=== PATIENT | female | born 1990 | race African-American/Black ===

== ENCOUNTER 2016-05-30 16:23 | Emergency (ER) | payer MEDICAID ==
--- NOTE | 2016-05-30 17:04 | ER Document Report ---
ED Medical Screen (RME) - General Stated Complaint: VAGINAL BLEEDING Time seen by provider: 17:02 Mode of Arrival: Ambulatory Information source: Patient TRAVEL OUTSIDE OF THE [place] IN LAST 30 DAYS: No - HPI Patient complains to provider of: VAGINAL BLEEDING Onset: Yesterday Onset/Duration: Sudden Quality of pain: Cramping Severity: Mild Pain Level: 2 Associated Symptoms: Abdominal pain - CRAMPING, Vaginal bleeding - DENIES PASSING CLOTS, ALSO C/O VAGINAL ITCHING Exacerbated by: Denies Relieved by: Denies Similar symptoms previously: Yes - HAD SPOTTING LAST WELL Recently seen / treated by doctor: No Notes: 05/30/16 17:03 THINKS SHE IS ABOUT 5-7 WEEKS - Related Data Smoking: Quit less than 1 year Frequency of alcohol use: None Drug Abuse: None Allergies/Adverse Reactions: No Known Allergies Allergy (Verified 05/30/16 16:59) Physical Exam - Vital signs Vitals: Temp Pulse Resp BP Pulse Ox 98.9 F 110 H 16 141/79 H 99 05/30/16 16:27 05/30/16 16:27 05/30/16 16:27 05/30/16 16:27 05/30/16 16:27 Course - Vital Signs Vital signs: Temp Pulse Resp BP Pulse Ox 98.9 F 110 H 16 141/79 H 99 05/30/16 16:27 05/30/16 16:27 05/30/16 16:27 05/30/16 16:27 05/30/16 16:27
[2016-05-30 17:22] LABS: ABSOLUTE EOSINOPHILS # (AUTO) 0.2 10^3/uL (0.0-0.6); ABSOLUTE LYMPHOCYTES (AUTO) 2.8 10^3/uL (0.5-4.7); ABSOLUTE MONOCYTES (AUTO) 0.7 10^3/uL (0.1-1.4); ABSOLUTE NEUT (AUTO) 7.7 10^3/uL (1.7-8.2); BASOPHILS % (AUTO) 0.3 % (0-2); EOSINOPHILS % (AUTO) 1.8 % (0-6); HEMATOCRIT 37.6 % (36.0-47.0); HEMOGLOBIN 11.8 g/dL (12.0-15.5); HGB HCT DIFFERENCE -2.2; LYMPHOCYTES % (AUTO) 24.6 % (13-45); MEAN CORPUSCULAR HGB CONC 31.5 g/dL (32.0-36.0); MEAN CORPUSCULAR VOLUME 70 fl (80-97); MONOCYTES % (AUTO) 6.3 % (3-13); RED BLOOD COUNT 5.37 10^6/uL (3.72-5.28); RED CELL DISTRIBUTION WIDTH 18.4 % (11.5-14.0); WHITE BLOOD COUNT 11.6 10^3/uL (4.0-10.5)
[2016-05-30 17:40] LABS: ALANINE AMINOTRANSFERASE 30 U/L (9-52); ALBUMIN 3.6 g/dL (3.5-5.0); ALKALINE PHOSPHATASE 72 U/L (38-126); ANION GAP 11 (5-19); ASPARTATE AMINO TRANSFERASE 24 U/L (14-36); BILIRUBIN,TOTAL 0.3 mg/dL (0.2-1.3); BLOOD UREA NITROGEN 11 mg/dL (7-20); CALCIUM 9.4 mg/dL (8.4-10.2); CARBON DIOXIDE 25 mmol/L (22-30); CHLORIDE 105 mmol/L (98-107); CREATININE RESULT 0.65 mg/dL (0.52-1.25); GLUCOSE 92 mg/dL (75-110); POTASSIUM 4.1 mmol/L (3.6-5.0); SODIUM 140.8 mmol/L (137-145); TOTAL PROTEIN 7.3 g/dL (6.3-8.2)
--- NOTE | 2016-05-30 18:59 | ER Document Report ---
ED GI/ - General Chief Complaint: Vag Bleeding, +preg <12wks Stated Complaint: VAGINAL BLEEDING Mode of Arrival: Ambulatory Information source: Patient Notes: 25 y/o female (twins) with uncertain LMP (thinks mid march?) presents with lower pelvic pain and vaginal bleeding since last night. Uncertain blood type. No US yet this . Bleeding is sitecore developer than a period, no clots or tissue. No fevers, chills, systemic symptoms. No dysuria. Pt planning to go [facility] and at this point does not have a PCP or OB provider. TRAVEL OUTSIDE OF THE [place] IN LAST 30 DAYS: No - HPI OB ultrasound done: No vitamins taken: No Associated symptoms: denies: Dizzy, Fever, Shortness of breath, Syncope, Urinary frequency, Urinary urgency, Vomiting - Related Data Allergies/Adverse Reactions: No Known Allergies Allergy (Verified 05/30/16 16:59) Past Medical History - General Information source: Patient Last Menstrual Period: 04/18/2017 - Social History Smoking Status: Current Every Day Smoker Chew tobacco use (# tins/day): No Smoking Education Provided: Yes - pt states she quit last week when she found out she was Frequency of alcohol use: None Drug Abuse: None Family History: Reviewed & Not Pertinent Patient has suicidal ideation: No Patient has homicidal ideation: No - Medical History Medical History: Negative Renal/ Medical History: Denies: Hx Peritoneal Dialysis Past Surgical History: Reports: Hx Section, Hx Tonsillectomy Review of Systems - Review of Systems Notes: REVIEW OF SYSTEMS: CONSTITUTIONAL : Denies fever, chills, or sweats. Denies recent illness. EENT: Denies eye, ear, throat, or mouth pain or symptoms. Denies nasal or sinus congestion. CARDIOVASCULAR: Denies chest pain. RESPIRATORY: Denies cough, cold, or chest congestion. Denies shortness of breath, difficulty breathing, or wheezing. GASTROINTESTINAL: Denies abdominal pain. Denies nausea, vomiting, or diarrhea. Denies constipation. Last BM: GENITOURINARY: Denies difficulty urinating, painful urination, burning, frequency, or blood in urine. FEMALE GENITOURINARY: as per HPI MUSCULOSKELETAL: Denies neck or back pain or joint pain or swelling. SKIN: Denies rash or skin lesions. HEMATOLOGIC : Denies easy bruising or bleeding. LYMPHATIC: Denies swollen, enlarged glands. NEUROLOGICAL: Denies altered mental status or loss of consciousness. Denies headache. Denies weakness or paralysis or loss of use of either side. PSYCHIATRIC: Denies anxiety or stress or depression. ALL OTHER SYSTEMS REVIEWED AND NEGATIVE. Physical Exam - Vital signs Vitals: Temp Pulse Resp BP Pulse Ox 98.9 F 110 H 16 141/79 H 99 05/30/16 16:27 05/30/16 16:27 05/30/16 16:27 05/30/16 16:27 05/30/16 16:27 - Notes Notes: PHYSICAL EXAMINATION: GENERAL: Well-appearing, well-nourished and in no acute distress. HEAD: Atraumatic, normocephalic. EYES: Pupils equal round and reactive to light, extraocular movements intact, sclera anicteric, conjunctiva are normal. ENT: nares patent, oropharynx clear without exudates. Moist mucous membranes. NECK: Normal range of motion, supple without lymphadenopathy LUNGS: Breath sounds clear to auscultation bilaterally and equal. No wheezes rales or rhonchi. HEART: Regular rate and rhythm without murmurs ABDOMEN: Soft, nontender, normoactive bowel sounds, obese. No guarding, no rebound. No masses appreciated. EXTREMITIES: Normal range of motion, no pitting or edema NEUROLOGICAL: Cranial nerves grossly intact. No gross motor or sensory deficits PSYCH: Normal mood, normal affect. SKIN: Warm, Dry, normal turgor, no rashes or lesions noted. - Genitourinary External exam: Other - right sided bartholin's gland cyst noted Speculum exam: Normal, Cervix closed. No: Vaginal discharge Vaginal bleeding: None Bimanuel exam: Other - deferred secondary to bartholins cyst Course - Re-evaluation Re-evalutation: 05/30/16 20:37 Pt doing well, no further bleeding in ER. Discussed US results and diagnosis of threatened miscarriage. Pt is not a rhogam candidate. Pt to follow up with health department. Strict return precautions discussed and questions answered. - Vital Signs Vital signs: Temp Pulse Resp BP Pulse Ox 98.9 F 110 H 16 141/79 H 99 05/30/16 16:27 05/30/16 16:27 05/30/16 16:27 05/30/16 16:27 05/30/16 16:27 - Laboratory Result Diagrams: 05/30/16 17:13 05/30/16 17:13 Laboratory results interpreted by me: 05/30/16 05/30/16 05/30/16 17:13 17:13 19:24 WBC 11.6 H RBC 5.37 H Hgb 11.8 L MCV 70 L MCH 22.0 L MCHC 31.5 L RDW 18.4 H Beta HCG, Quant 3096.70 H Urine Protein 30 H Ur Leukocyte Esterase MODERATE H 05/30/16 19:01 05/30/16 20:37 - Diagnostic Test Radiology reviewed: Reports reviewed - IUP with GS and YS, no pole. Area of subchorionic hemorrhage. Discharge - Discharge Clinical Impression: Threatened in early , Subchorionic hemorrhage in first trimester Condition: Good Disposition: HOME, SELF-CARE Additional Instructions: THREATENED MISCARRIAGE: You have been evaluated for a possible miscarriage. At this time, there is no indication that a miscarriage will occur. Most women with your symptoms will go on to have a perfectly normal baby. However, careful observation will be necessary. A miscarriage occurs when the fetus is abnormal. There is no medicine or treatment for it. You should rest in bed until the symptoms have resolved. Do not douche or have sex for at least a week, or until OK'd by the doctor. Call the doctor or return for re-examination if there is an increase in bleeding or cramping, or passage of tissue. FOLLOW-UP CARE: If you have been referred to a physician for follow-up care, call the physician s office for an appointment as you were instructed or within the next two days. If you experience worsening or a significant change in your symptoms (very heavy bleeding with large clots of blood, passage of tissue, more severe abdominal / pelvic pain or cramping, feeling faint or severe weakness, fever, etc.), notify the physician immediately or return to the Emergency Department at any time for re-evaluation. OBSTETRIC-GYNECOLOGIC (OB-HEARING AID MECHANIC) PHYSICIANS IN [place]: [facility] [address] [place] [address] [phone] Forms: Smoking Cessation Education Referrals: BRADLEY TIJERINA MD [Primary Care Provider] - Follow up as needed [facility] [Provider Group] - Follow up in 1 week
[2016-05-30 19:41] LABS: APPEARANCE,URINE CLOUDY; BILIRUBIN,URINE NEGATIVE (NEGATIVE); GLUCOSE, URINE NEGATIVE (NEGATIVE); KETONES,URINE NEGATIVE (NEGATIVE); LEUKOCYTE ESTERASE,URINE MODERATE (NEGATIVE); NITRITE,URINE NEGATIVE (NEGATIVE); PROTEIN,URINE 30 mg/dL (NEGATIVE); URINE SPECIFIC GRAVITY 1.029; UROBILINOGEN,URINE NEGATIVE mg/dL (<2.0)
[2016-05-30 21:03] LABS: CHLAM PCR NOT DETECTED (NOT DETECT)
[2016-05-30 21:08] VITALS: BP 123/61
== END 2016-05-30 20:58 | disposition home or self-care (01) ==
LOC: ER 16:23
DX: O20.0 Threatened abortion (principal); O26.891 Other specified pregnancy related conditions, first trimester; N75.0 Cyst of Bartholin's gland; R10.2 Pelvic and perineal pain; Z3A.00 Weeks of gestation of pregnancy not specified; Z87.891 Personal history of nicotine dependence
CPT/HCPCS: 36415; 76817; 80053; 81001; 84702; 85025; 86900; 86901; 87210; 87491; 87591; 99284

== ENCOUNTER 2016-12-21 20:07 | Outpatient (CLI) | payer MEDICAID ==
[2016-12-21 21:07] LABS: APPEARANCE,URINE CLOUDY; BILIRUBIN,URINE NEGATIVE (NEGATIVE); GLUCOSE, URINE NEGATIVE (NEGATIVE); KETONES,URINE NEGATIVE (NEGATIVE); LEUKOCYTE ESTERASE,URINE MODERATE (NEGATIVE); NITRITE,URINE NEGATIVE (NEGATIVE); PROTEIN,URINE NEGATIVE (NEGATIVE); URINE SPECIFIC GRAVITY 1.025; UROBILINOGEN,URINE NEGATIVE mg/dL (<2.0)
[2016-12-21 21:21] LABS: URINE BARBITURATES SCREEN NEGATIVE; URINE METHADONE SCREEN NEGATIVE; URINE OPIATES LOW NEGATIVE; URINE PHENCYCLIDINE SCREEN NEGATIVE
--- NOTE | 2016-12-21 21:33 | Non Stress Test Report ---
Non Stress Test Datetime Report Generated by CPN: 12/21/2016 21:33 DEMOGRAPHIC Test Number: 1 EGA NST: 34.5 INDICATION Indication for Study: Ordered by Provider MONITORING Monitor Explained: Monitor Explained; Test Explained; Patient Verbalized Understanding Time on Monitor: 12/21/2016 20:27 Time off Monitor: 12/21/2016 21:17 NST Duration: 50 NST INTERVENTIONS NST Interventions: PO Hydration Physician Notified NST: Dr Miner BABY A: [id number] BABY A Movement : Present Contraction Frequency : rare FHR Baseline : 140 Accelerations : 15X15 Decelerations : None Variability : Moderate 6-25bpm NST Review: Meets Criteria for Reactive NST NST Review and Verified By : Fatuma Cox RN NST Results: Reactive NST REPORT Report Trigger: Send Report
== END 2016-12-21 21:29 | disposition home or self-care (01) ==
LOC: LC 20:07
PROVIDERS: ATTEND Student in an Organized Health Care Education/Training Program
PROC: 4A1HXCZ Monitoring of Products of Conception, Cardiac Rate, External Approach (ICD-10-PCS; principal; 2016-12-21)
DX: O47.03 False labor before 37 completed weeks of gestation, third trimester (principal); Z3A.34 34 weeks gestation of pregnancy
CPT/HCPCS: 59025; 80307; 81001

== ENCOUNTER 2016-12-22 21:52 | Outpatient (CLI) | payer MEDICAID ==
[2016-12-22 22:24] LABS: APPEARANCE,URINE CLOUDY; BILIRUBIN,URINE NEGATIVE (NEGATIVE); GLUCOSE, URINE 50 mg/dL (NEGATIVE); KETONES,URINE NEGATIVE (NEGATIVE); LEUKOCYTE ESTERASE,URINE MODERATE (NEGATIVE); NITRITE,URINE NEGATIVE (NEGATIVE); PROTEIN,URINE 30 mg/dL (NEGATIVE); URINE SPECIFIC GRAVITY 1.028; UROBILINOGEN,URINE NEGATIVE mg/dL (<2.0)
[2016-12-22 22:41] LABS: URINE BARBITURATES SCREEN NEGATIVE; URINE METHADONE SCREEN NEGATIVE; URINE OPIATES LOW NEGATIVE; URINE PHENCYCLIDINE SCREEN NEGATIVE
[2016-12-23] MEDS ORDERED: HYDROXYZINE PAMOATE 50 MG CAPSULE PO ONE (00:10)
[2016-12-23] MEDS ORDERED: RINGERS SOLUTION,LACTATED 2,000 ML IV ONE (00:10)
[2016-12-23] MEDS ORDERED: HYDROXYZINE PAMOATE 50 MG CAPSULE ONE (00:13)
--- NOTE | 2016-12-23 00:37 | Non Stress Test Report ---
Non Stress Test Datetime Report Generated by CPN: 12/23/2016 00:37 DEMOGRAPHIC EGA NST: 35.0 INDICATION Indication for Study: Ordered by Provider; Other Indication for Study (NST) Other: labor check MONITORING Monitor Explained: Monitor Explained; Test Explained; Patient Verbalized Understanding Time on Monitor: 12/23/2016 22:05 Time off Monitor: 12/23/2016 00:16 NST Duration: -1309 NST INTERVENTIONS NST Interventions: PO Hydration; IV Fluids Physician Notified NST: Mao BABY A: [id number] BABY A Movement : Present Contraction Frequency : occasional FHR Baseline : 135 Accelerations : 15X15 Decelerations : None Variability : Moderate 6-25bpm NST Review: Meets Criteria for Reactive NST NST Review and Verified By : Fatuma Cox RN NST Results: Reactive NST REPORT Report Trigger: Send Report
== END 2016-12-23 00:24 | disposition home or self-care (01) ==
LOC: LC 21:52
PROVIDERS: ATTEND Obstetrics & Gynecology
PROC: 4A1HXCZ Monitoring of Products of Conception, Cardiac Rate, External Approach (ICD-10-PCS; principal; 2016-12-22)
DX: O47.03 False labor before 37 completed weeks of gestation, third trimester (principal); Z3A.35 35 weeks gestation of pregnancy
CPT/HCPCS: 59025; 81001; 80307; J3490

== ENCOUNTER 2017-01-18 17:26 | Outpatient (CLI) | payer MEDICAID ==
--- NOTE | 2017-01-18 18:11 | Non Stress Test Report ---
Non Stress Test Datetime Report Generated by CPN: 01/18/2017 18:11 DEMOGRAPHIC EGA NST: 38.5 INDICATION Indication for Study: Ordered by Provider VITAL SIGNS Temperature - NST: 99.0 MONITORING Monitor Explained: Monitor Explained; Test Explained; Patient Verbalized Understanding Time on Monitor: 01/18/2017 17:40 Time off Monitor: 01/18/2017 18:05 NST Duration: 25 NST INTERVENTIONS NST Interventions: PO Hydration Physician Notified NST: Dr. Garcia BABY A: [id number] BABY A Movement : Present Contraction Frequency : None FHR Baseline : 130 Accelerations : 15X15 Decelerations : None Variability : Moderate 6-25bpm NST Review: Meets Criteria for Reactive NST NST Review and Verified By : Fatuma Cavanaugh RN NST Results: Reactive NST COMMENTS NST Comments: Dr. Garcia reviewed strip, ordered to send pt home. Reviewed kickcounts and reasons to return to the hospital with pt, pt and support person verbalized understanding. NST REPORT Report Trigger: Send Report
== END 2017-01-18 18:05 | disposition home or self-care (01) ==
LOC: LC 17:26
PROVIDERS: ATTEND Obstetrics & Gynecology
PROC: 4A1HXCZ Monitoring of Products of Conception, Cardiac Rate, External Approach (ICD-10-PCS; principal; 2017-01-18)
DX: Z34.83 Encounter for supervision of other normal pregnancy, third trimester (principal); Z36 Encounter for antenatal screening of mother; Z3A.38 38 weeks gestation of pregnancy
CPT/HCPCS: 59025

== ENCOUNTER 2017-01-23 07:45 | Inpatient (IN) | payer MEDICAID ==
[2017-01-22 12:41] LABS: ABSOLUTE EOSINOPHILS # (AUTO) 0.2 10^3/uL (0.0-0.6); ABSOLUTE LYMPHOCYTES (AUTO) 1.7 10^3/uL (0.5-4.7); ABSOLUTE MONOCYTES (AUTO) 0.8 10^3/uL (0.1-1.4); ABSOLUTE NEUT (AUTO) 5.6 10^3/uL (1.7-8.2); BASOPHILS % (AUTO) 0.3 % (0-2); EOSINOPHILS % (AUTO) 2.3 % (0-6); HEMATOCRIT 30.6 % (36.0-47.0); HEMOGLOBIN 10.1 g/dL (12.0-15.5); HGB HCT DIFFERENCE -0.3; LYMPHOCYTES % (AUTO) 20.7 % (13-45); MEAN CORPUSCULAR HEMOGLOBIN 23.8 pg (27.0-33.4); MEAN CORPUSCULAR HGB CONC 32.8 g/dL (32.0-36.0); MEAN CORPUSCULAR VOLUME 72 fl (80-97); MONOCYTES % (AUTO) 9.3 % (3-13); RED BLOOD COUNT 4.23 10^6/uL (3.72-5.28); RED CELL DISTRIBUTION WIDTH 18.3 % (11.5-14.0); SEGMENTED NEUTROPHILS % (AUTO) 67.4 % (42-78); WHITE BLOOD COUNT 8.3 10^3/uL (4.0-10.5)
[2017-01-22 12:46] LABS: APPEARANCE,URINE CLEAR; BILIRUBIN,URINE NEGATIVE (NEGATIVE); GLUCOSE, URINE NEGATIVE (NEGATIVE); KETONES,URINE NEGATIVE (NEGATIVE); LEUKOCYTE ESTERASE,URINE NEGATIVE (NEGATIVE); NITRITE,URINE NEGATIVE (NEGATIVE); PROTEIN,URINE 30 mg/dL (NEGATIVE); UROBILINOGEN,URINE NEGATIVE mg/dL (<2.0)
[2017-01-22 13:20] LABS: URINE BARBITURATES SCREEN NEGATIVE; URINE METHADONE SCREEN NEGATIVE; URINE OPIATES LOW NEGATIVE; URINE PHENCYCLIDINE SCREEN NEGATIVE
[2017-01-24] MEDS ORDERED: CEFAZOLIN 2 GM/D5W RTU 2 GM/50 ML RTUPB IV PRN (05:00)
[2017-01-24] MEDS ORDERED: LIDOCAINE 0.5% INJ-PF (5 MG/ML) 50 ML SDV SUBCUT PRN (05:00)
[2017-01-24] MEDS ORDERED: LACTATED RINGERS 1000 ML IV PRN (05:00)
[2017-01-24] MEDS ORDERED: RINGERS SOLUTION,LACTATED 1,500 ML IV PRN (05:00)
[2017-01-24] MEDS ORDERED: MIDAZOLAM 2 MG/2 ML INJ ONE (07:38)
[2017-01-24] MEDS ORDERED: FENTANYL CITRATE INJ/PF 100 MCG/2 ML AMPUL ONE (07:38)
[2017-01-24] MEDS ORDERED: EPHEDRINE SULFATE INJ 50 MG/1 ML AMPULE ONE (07:38)
[2017-01-24] MEDS ORDERED: OXYTOCIN/NORMAL SALINE 20 UNIT/1,000 ML RTUINJ ONE ×2 (07:39→09:37)
[2017-01-24] MEDS ORDERED: ACETAMINOPHEN 100 ML IV ONE (07:39)
[2017-01-24] MEDS ORDERED: DIPHENHYDRAMINE HCL 50 MG/ML VIAL IV PRN (07:59)
[2017-01-24] MEDS ORDERED: PROMETHAZINE HCL INJ 25 MG/1 ML VIAL IV PRN ×2 (07:59)
[2017-01-24] MEDS ORDERED: MORPHINE SULFATE 10 MG/ML INJ IV PRN (07:59)
[2017-01-24] MEDS ORDERED: FENTANYL CITRATE INJ/PF 100 MCG/2 ML AMPUL IV PRN ×3 (07:59)
[2017-01-24] MEDS ORDERED: MEPERIDINE HCL/PF INJ 25 MG/1 ML DISP.SYRIN IV PRN (07:59)
[2017-01-24] MEDS ORDERED: OXYCODONE-ACETAMINOPHEN 5-325 MG TABLET PO PRN ×3 (07:59→10:30)
[2017-01-24] MEDS ORDERED: MISOPROSTOL 0.2 MG TABLET ONE (08:35)
[2017-01-24] MEDS ORDERED: OXYTOCIN/NORMAL SALINE 20 UNIT/1,000 ML RTUINJ INJ PRN (10:20)
[2017-01-24] MEDS ORDERED: PROMETHAZINE HCL INJ 25 MG/1 ML VIAL IM PRN (10:30)
[2017-01-24] MEDS ORDERED: ACETAMINOPHEN 325 MG TABLET PO PRN (10:30)
[2017-01-24] MEDS ORDERED: RINGERS SOLUTION,LACTATED 1,000 ML IV SCH (10:30)
[2017-01-24] MEDS ORDERED: MEASLES,MUMPS&RUBELLA VACC/PF 0.5 ML VIAL SUBCUT PRN (10:30)
[2017-01-24] MEDS ORDERED: DIPH/PERTUSS(ACELL)/TETANUS VAC/PF 0.5 ML SYR (>=10YO) IM PRN (10:30)
[2017-01-24] MEDS ORDERED: SIMETHICONE 80 MG TAB.CHEW PO PRN (10:30)
--- NOTE | 2017-01-24 11:30 | OPERATIVE REPORT E ---
Operative Report NAME: ALIYAH REED : 1990 AGE: 26Y DATE OF SURGERY: 01/24/2017 ROOM: 227 PREOPERATIVE DIAGNOSES: 1. Intrauterine at 39+ weeks with history of and desire for repeat. 2. Gestational diabetes. 3. Hydradenitis suppurativa. POSTOPERATIVE DIAGNOSES: 1. Intrauterine at 39+ weeks with history of and desire for repeat. 2. Gestational diabetes. 3. Hydradenitis suppurativa. OPERATION PERFORMED: Repeat low transverse . SURGEON: EMILY MCBRIDE M.D. ANESTHESIA: Spinal. ESTIMATED BLOOD LOSS: 600 mL. SPECIMEN TO PATHOLOGY: None, placenta was discarded. FINDINGS: Abdomen has skin changes consistent with hydradenitis suppurativa. There were a couple of infected areas on her abdominal wall. She had a redundant pannus. There was a Huerta male infant in vertex presentation with clear amniotic fluid. Apgars were 7 at one, 9 at five minutes. Weight was 9 pounds 14 ounces. DESCRIPTION OF PROCEDURE: After discussing risks, benefits, and alternatives of the procedure and obtaining informed consent, the patient was taken to the operating room where spinal anesthesia was achieved. She was positioned in the dorsal supine position with a leftward tilt. A Rivera catheter was placed and the pannus was taped back. She was prepped and draped in the standard fashion. A Pfannenstiel skin incision was made and abdomen was entered in layers in the standard fashion. The hysterotomy incision was made, and the surgeon's hand was entered into it. An attempt was made at elevating the vertex; however, the rectus muscles were very stiff and did not allow for delivery of the head; therefore, the surgeon's hand was removed from the hysterotomy and the rectus muscles on the right were interrupted with cautery to allow for more space. Attempt was again made at elevating the vertex out of the abdominal cavity. Difficulty was encountered and so a Kiwi vacuum was applied to the vertex and pulled over one pull with no pop-off to delivery. Maximum pressure was 550 mmHg. The shoulders and body delivered then delivered easily thereafter. Nasopharynx and oropharynx were bulb suctioned. Cord was clamped x2 and cut. Placenta was manually extracted. Uterus was left in situ but cleared of all clots and debris. The hysterotomy incision was closed with 0 Monocryl in a running locked fashion. An area of oozing was noted on the right aspect of the incision and this was oversewn with 0-Monocryl. Excellent hemostasis was then observed. The pelvis was irrigated and hemostasis again assured. Next the peritoneum was closed with 2-0 Vicryl in a pursestring fashion. An area of bleeding was then noted in the inferior epigastric area on the patient's left. It was on the inferior aspect of the incision and this was oversewn with a [id number] of 2-0 Vicryl. Excellent hemostasis was observed. The subfascial spaces were inspected and hemostasis again assured. The rectus muscles were loosely reapproximated with interrupted 2-0 Vicryl. The fascia was closed with #1 Vicryl. Subcutaneous spaces were closed with 3-0 plain gut. Skin was closed in a subcuticular fashion with 3-0 Monocryl. A DULCE dressing was placed for negative wound pressure given the patient's hydradenitis and increased risk for wound infection. It was also felt prudent given her obesity. All sponge, needle, lap, and instrument counts were correct x2. Cytotec 1000 mcg was placed given the macrosomic fetus in a patient who is multiparous to prevent uterine atony. The patient was taken to recovery in stable condition. DICTATING PHYSICIAN: EMILY MCBIRDE M.D. [id number] PHY#: [id number] ID: [id number] JOB#: [id number] ACCT: [id number] cc:EMILY MCBRIDE M.D. >
[2017-01-24] MEDS ORDERED: ONDANSETRON HCL INJ/PF 4 MG/2 ML SDV ONE (11:49)
[2017-01-24] MEDS: HYDROMORPHONE HCL INJ/PF 2 MG/ML AMPULE IV PRN ×3 (12:00→21:14)
[2017-01-24] MEDS: IBUPROFEN 800 MG TABLET PO SCH ×2 (13:06→17:10)
[2017-01-24] MEDS: DOCUSATE SODIUM 100 MG CAPSULE PO SCH (17:10)
[2017-01-25] MEDS: IBUPROFEN 800 MG TABLET PO SCH ×4 (00:32→18:39)
[2017-01-25 06:22] LABS: HEMATOCRIT 25.9 % (36.0-47.0); HEMOGLOBIN 8.4 g/dL (12.0-15.5); HGB HCT DIFFERENCE -0.7; MEAN CORPUSCULAR HEMOGLOBIN 23.8 pg (27.0-33.4); MEAN CORPUSCULAR HGB CONC 32.4 g/dL (32.0-36.0); MEAN CORPUSCULAR VOLUME 74 fl (80-97); RED BLOOD COUNT 3.53 10^6/uL (3.72-5.28); RED CELL DISTRIBUTION WIDTH 18.7 % (11.5-14.0); WHITE BLOOD COUNT 8.5 10^3/uL (4.0-10.5)
[2017-01-25] MEDS: OXYCODONE-ACETAMINOPHEN 5-325 MG TABLET PO PRN ×3 (07:19→22:44)
[2017-01-25] MEDS: DOCUSATE SODIUM 100 MG CAPSULE PO SCH ×2 (09:52→18:39)
[2017-01-25] MEDS: PRENATAL VITAMIN W-O CA NO5/FE FUMARATE/FA CAPSULE PO SCH (09:52)
--- NOTE | 2017-01-25 14:35 | PDOC PROGRESS REPORT ---
Subjective-OB Subjective: Post Delivery Day: 1 26 year old. Denies any needs at this time, lochia is stable, pain well controlled, voiding without difficulty, passing gas. Physical Exam (OB) Vital Signs: Temp Pulse Resp BP Pulse Ox 98.2 F 86 21 H 128/68 H 98 01/25/17 07:58 01/25/17 07:58 01/25/17 07:58 01/25/17 07:58 01/25/17 07:58 Intake & Output 01/24/17 01/25/17 01/26/17 06:59 06:59 06:59 Intake Total 2975 Output Total 1900 Balance 1075 Weight 134 kg - PIH/Pre-Eclampsia Headache: Absent Epigastric Pain: No Visual Changes: No - Dressing Removed: No - dulce Incision: Dressing Closure Type: DULCE - Lochia Lochia Amount: Scant < 10 ml Lochia Color: Rubra/Red, Serosa/Brown - Abdomen Description: Soft Hernia Present: No Fundal Description: Firm, Midline Fundal Height: u/u - u/2 Objective-Diagnostic Laboratory: 01/25/17 06:10 01/25/17 06:10 WBC 8.5 RBC 3.53 L Hgb 8.4 L Hct 25.9 L MCV 74 L MCH 23.8 L MCHC 32.4 RDW 18.7 H Plt Count 106 L Assessment and Plan(PN) - Assessment and Plan (1) Gestational diabetes Qualifiers: Gestational diabetes mellitus control: unspecified Trimester: third trimester Qualified Code(s): O24.419 - Gestational diabetes mellitus in , unspecified control Is this a current diagnosis for this admission?: Yes Plan: yearly follow up pp follow up (2) Hidradenitis suppurativa Is this a current diagnosis for this admission?: Yes Plan: f/u prn (3) Delivery by emergency section Is this a current diagnosis for this admission?: Yes Plan: routine postop care - Time Spent with Patient Time with patient: Less than 15 minutes Critical Time spent with patient: Less than 15 minutes Medications reviewed and adjusted accordingly: Yes - Disposition Anticipated Discharge: Home Within: within 24 hours
[2017-01-26] MEDS: OXYCODONE-ACETAMINOPHEN 5-325 MG TABLET PO PRN ×2 (03:17→10:09)
[2017-01-26] MEDS: IBUPROFEN 800 MG TABLET PO SCH ×3 (06:20→11:11)
[2017-01-26 08:41] VITALS: BP 128/75
[2017-01-26] MEDS: PRENATAL VITAMIN W-O CA NO5/FE FUMARATE/FA CAPSULE PO SCH (09:52)
[2017-01-26] MEDS: DOCUSATE SODIUM 100 MG CAPSULE PO SCH (09:52)
--- NOTE | 2017-01-26 10:26 | PDOC PROGRESS REPORT ---
Subjective-OB Subjective: Post Delivery Day: 26 year old. Denies any needs at this time Doing well, ready to go home, pain under control, + gas, breast feeding, eating well, ambulating, voiding Physical Exam (OB) Vital Signs: Temp Pulse Resp BP Pulse Ox 98.4 F 92 18 128/75 H 99 01/26/17 08:40 01/26/17 08:40 01/26/17 08:40 01/26/17 08:40 01/26/17 08:40 Intake & Output 01/25/17 01/26/17 01/27/17 06:59 06:59 06:59 Intake Total 2975 1500 Output Total 1900 Balance 1075 1500 - PIH/Pre-Eclampsia Headache: Absent Epigastric Pain: No Visual Changes: No - Dressing Removed: No - dulce Incision: Dressing Closure Type: DULCE - Lochia Lochia Amount: Small 10-25 ml Lochia Color: Rubra/Red - Abdomen Description: Soft Hernia Present: No Fundal Description: Firm, Midline Fundal Height: u/u - u/2 Objective-Diagnostic Laboratory: 01/25/17 06:10 Assessment and Plan(PN) - Assessment and Plan (1) Marijuana abuse Is this a current diagnosis for this admission?: Yes (2) Status post repeat low transverse section Is this a current diagnosis for this admission?: Yes (3) Anemia Qualifiers: Anemia type: iron deficiency Is this a current diagnosis for this admission?: Yes (4) Gestational diabetes Qualifiers: Gestational diabetes mellitus control: unspecified Trimester: third trimester Qualified Code(s): O24.419 - Gestational diabetes mellitus in , unspecified control Is this a current diagnosis for this admission?: Yes - Time Spent with Patient Time with patient: Less than 15 minutes Smoking Education Provided: Over 3 minutes Medications reviewed and adjusted accordingly: Yes - Disposition Anticipated Discharge: Home Within: Other - home today
--- NOTE | 2017-01-26 10:31 | PDOC DISCHARGE SUMMARY ---
Final Diagnosis Discharge Date: 01/26/17 - Final Diagnosis (1) Marijuana abuse Is this a current diagnosis for this admission?: Yes (2) Status post repeat low transverse section Is this a current diagnosis for this admission?: Yes (3) Anemia Is this a current diagnosis for this admission?: Yes (4) Gestational diabetes Is this a current diagnosis for this admission?: Yes Discharge Data - Discharge Medication Home Medications: Prenat 115/Iron Fum/Folic/Dss [ 19 Tablet] 1 tab PO DAILY 01/21/15 Ibuprofen [Motrin 800 mg Tablet] 800 mg PO Q6 #30 tablet 01/26/17 Oxycodone HCl/Acetaminophen [Percocet 5-325 mg Tablet] 1 tab PO Q4HP PRN #30 tablet 01/26/17 Gestational Age: 39 Reason(s) for Admission: Ceasarean Section-Repeat, Gestional Diabetes Procedures: NST, Ultrasound Intrapartum Procedure(s): : Low Cervical, Transverse - Data Baby 1 Male Weight: 4.479 kg Home with Mother: Yes Complications: No - Diagnosis Test Laboratory: Temp Pulse Resp BP Pulse Ox 98.4 F 92 18 128/75 H 99 01/26/17 08:40 01/26/17 08:40 01/26/17 08:40 01/26/17 08:40 01/26/17 08:40 01/22/17 01/22/17 01/25/17 12:00 12:12 06:10 RBC 4.23 3.53 L Hgb 10.1 L 8.4 L Hct 30.6 L 25.9 L Urine Opiates Screen NEGATIVE - Discharge information/Instructions Discharge Activity: Activity As Tolerated, No Lifting Over 10 Pounds, No Lifting /Push/Pulling, Pelvic Rest Discharge Diet: As Tolerated, Regular Disposition: HOME, SELF-CARE Follow [facility] with: [facility] in: 1, Weeks
== END 2017-01-26 12:03 | disposition home or self-care (01) | DRG 765 ==
LOC: 2S 01-24 05:05
PROVIDERS: ADMIT Obstetrics & Gynecology; ATTEND Specialist
PROC: 4A1HXCZ Monitoring of Products of Conception, Cardiac Rate, External Approach (ICD-10-PCS; 2017-01-24)
PROC: 10D00Z1 Extraction of Products of Conception, Low, Open Approach (ICD-10-PCS; principal; 2017-01-24 07:45)
DX: O34.219 Maternal care for unspecified type scar from previous cesarean delivery (principal); O99.324 Drug use complicating childbirth; Z37.0 Single live birth; O99.02 Anemia complicating childbirth; D64.9 Anemia, unspecified; O24.429 Gestational diabetes mellitus in childbirth, unspecified control; L73.2 Hidradenitis suppurativa; Z87.891 Personal history of nicotine dependence; F12.10 Cannabis abuse, uncomplicated; Z3A.39 39 weeks gestation of pregnancy
CPT/HCPCS: 1961; 36415; 59025; 80307; 81001; 82962; 85025; 85027; 86850; 86900; 86901; 94799; J0131; J1170; J2250; J2405; J2590; J3010; J3490; J7120